=== PATIENT | female | born 1980 | race Caucasian/White ===

== ENCOUNTER → 2017-06-23 | Emergency (ER) | payer OTHER ==
[~2017-06-23] VITALS: Ht 177.8 cm; Wt 113.4 kg
[~2017-06-23] MED LIST: COZAAR25 MG PO; OSEL75CA PO; XOPENEX0.63 MG/3 IH; ZYNCOF 20-400120 ML PO
== END | disposition home or self-care (01) ==
LOC: ER 19:11
DX: J11.1 Influenza due to unidentified influenza virus with other respiratory manifestations (principal); B34.9 Viral infection, unspecified